=== PATIENT | male | born 1935 | race Caucasian/White ===

== ENCOUNTER 2017-05-17 12:27 | Observation (INO) | payer MEDICARE, OTHER ==
[~2017-05-17 12:27] MED LIST: CYCL10TA PO; METF500T PO; PROS5TAB PO
[2017-05-17 15:24] VITALS: BP 157/78; PULSE 86; RESP 18; TEMP 98.2; O2SAT 94
[2017-05-17] MEDS ORDERED: ONDANSETRON HCL 4 MG/2 ML VIAL IV PUSH PRN (15:30)
[2017-05-17] MEDS ORDERED: DEXTROSE 50% IN WATER 50 ML VIAL(D50) IV PUSH PRN (15:30)
[2017-05-17] MEDS ORDERED: GLUCAGON 1 MG/ML VIAL OTHER PRN (15:30)
--- NOTE | 2017-05-17 15:56 | HHI.HP ---
[facility] Admission Diagnosis abdominal pain Diagnoses: (1) Abdominal pain Diagnosis: Principal Chief Complaint: abdominal pain Travel History International Travel<30 Days: Yes Contact w/Intl Traveler <30 Da: Yes Name of Country Traveled to: [place] Traveled to Known Affected Are: No History of Present Illness patient is a 81 y/o male with history of diabetes who presented to ER with abdominal pain. pain started few days ago when he was on a cruise.pain was epigastric which later shifted to the RUQ. pain was associated with some nausea and vomiting but with no fever or chills. he had some soft BM's but with no diarrhea. he received some IV fluid and antiemetics on the cruise. pain gradually got worse which made him to come back to ER. there was no other sick passenger on the cruise per the family. Review of Systems Constitutional: DENIES: Fever, Weight loss, Chills, Night Sweats Eyes: DENIES: Blurred vision, Diplopia, Vision loss, Double Vision Ears, nose, mouth, throat: DENIES: Tinnitus, Vertigo, Throat pain, Epistaxis Respiratory: DENIES: Apneas, Cough, Snoring, Wheezing, Hemoptysis, Sputum production, Shortness of breath Cardiovascular: DENIES: Chest pain, Palpitations, Syncope, Dyspnea on Exertion , PND, Lower Extremity Edema, Orthopnea, Claudication Gastrointestinal: COMPLAINS OF: Abdominal pain, Nausea, Vomiting, DENIES: Black stools, Bloody stools, Constipation, Diarrhea, Difficulty Swallowing, Anorexia Genitourinary: DENIES: Urinary frequency, Urgency, Hematuria, Dysuria Musculoskeletal: DENIES: Joint pain, Muscle aches, Stiffness, Joint Swelling Integumentary: DENIES: Rash Neurologic: DENIES: Abnormal gait, Headache, Localized weakness, Paresthesias, Seizures, Speech Problems, Tremor, Poor Balance Psychiatric: DENIES: Anxiety, Confusion, Mood changes, Depression, Hallucinations, Agitation, Suicidal Ideation, Homicidal Ideation, Delusions Past Family Social History Past Medical History diabetes mellitus Reported Medications finasteride/ metformin/ Flexeril Allergies: Coded Allergies: No Known Allergies (Unverified , 05/17/17) Active Ordered Medications Inpatient Medications Dextrose (D50w (Vial) Inj) 50 ml UNSCH PRN IV PUSH HYPOGLYCEMIA-SEE COMMENTS; Start 05/17/17 at 15:30 Glucagon (Glucagon Inj) 1 mg UNSCH PRN OTHER HYPOGLYCEMIA-SEE COMMENTS; Start 05/17/17 at 15:30 Insulin Aspart (NovoLOG SUPPLEMENTAL SCALE) 1 ACHS SLIDING SCALE SQ ; Start 05/17/17 at 17:00 Ondansetron HCl (Zofran Inj) 4 mg Q8HR PRN IV PUSH NAUSEA; Start 05/17/17 at 15: 30 Sodium Chloride 1,000 ml @ 75 mls/hr [id number] IV ; Start 05/17/17 at 15:30 Social History quit smoking years ago- doesn't drink. Physical Exam Vital Signs Vital Signs Date Time Temp Pulse Resp B/P (MAP) Pulse Ox O2 Delivery O2 Flow Rate FiO2 05/17/17 15:24 98.2 86 18 157/78 (104) 94 Physical Exam GENERAL: This is a well-nourished, well-developed patient, in no apparent distress. SKIN: No rashes, ecchymoses or lesions. Cool and dry. HEAD: Atraumatic. Normocephalic. No temporal or scalp tenderness. EYES: Pupils equal round and reactive. Extraocular motions intact. No scleral icterus. No injection or drainage. ENT: Nose without bleeding, purulent drainage or septal hematoma. Throat without erythema, tonsillar hypertrophy or exudate. Uvula midline. Airway patent. NECK: Trachea midline. No JVD or lymphadenopathy. Supple, nontender, no meningeal signs. CARDIOVASCULAR: Regular rate and rhythm without murmurs, gallops, or rubs. RESPIRATORY: Clear to auscultation. Breath sounds equal bilaterally. No wheezes , rales, or rhonchi. GASTROINTESTINAL: Abdomen soft, RUQ tenderness, nondistended. No hepato- splenomegaly, or palpable masses. No guarding. MUSCULOSKELETAL: Extremities without clubbing, cyanosis, or edema. No joint tenderness, effusion, or edema noted. No calf tenderness. Negative Homans sign bilaterally. NEUROLOGICAL: Awake and alert. Cranial nerves II through XII intact. Motor and sensory grossly within normal limits. Five out of 5 muscle strength in all muscle groups. Normal speech. Caprini VTE Risk Assessment Caprini VTE Risk Assessment: Mod/High Risk (score >= 2) Caprini Risk Assessment Model Point Value = 1 Point Value = 2 Point Value = 3 Point Value = 5 Age 41-60 Minor surgery BMI > 25 kg/m2 Swollen legs Varicose veins or History of unexplained or recurrent spontaneous Oral contraceptives or hormone replacement Sepsis (< 1 month) Serious lung disease, including pneumonia (< 1 month) Abnormal pulmonary function Acute myocardial infarction Congestive heart failure (< 1 month) History of inflammatory bowel disease Medical patient at bed rest Age 61-74 Arthroscopic surgery Major open surgery (> 45 min) Laparoscopic surgery (> 45 min) Malignancy Confined to bed (> 72 hours) Immobilizing plaster cast Central venous access Age >= 75 History of VTE Family history of VTE Factor V Leiden Prothrombin [id number] Lupus anticoagulant Anticardiolipin antibodies Elevated serum homocysteine Heparin-induced thrombocytopenia Other congenital or acquired thrombophilia Stroke (< 1 month) Elective arthroplasty Hip, pelvis, or leg fracture Acute spinal cord injury (< 1 month) Prophylaxis Regimen Total Risk Factor Score Risk Level Prophylaxis Regimen 0-1 Low Early ambulation 2 Moderate Order ONE of the following: *Sequential Compression Device (SCD) *Heparin 5000 units SQ BID 3-4 Higher Order ONE of the following medications: *Heparin 5000 units SQ TID *Enoxaparin/Lovenox 40 mg SQ daily (WT < 150 kg, CrCl > 30 mL/min) *Enoxaparin/Lovenox 30 mg SQ daily (WT < 150 kg, CrCl > 10-29 mL/min) *Enoxaparin/Lovenox 30 mg SQ BID (WT < 150 kg, CrCl > 30 mL/min) AND/OR *Sequential Compression Device (SCD) 5 or more Highest Order ONE of the following medications: *Heparin 5000 units SQ TID (Preferred with Epidurals) *Enoxaparin/Lovenox 40 mg SQ daily (WT < 150 kg, CrCl > 30 mL/min) *Enoxaparin/Lovenox 30 mg SQ daily (WT < 150 kg, CrCl > 10-29 mL/min) *Enoxaparin/Lovenox 30 mg SQ BID (WT < 150 kg, CrCl > 30 mL/min) AND *Sequential Compression Device (SCD) Assessment and Plan Assessment and Plan A/P - RUQ pain keep NPO- start on IV fluid- pain control and antiemetics as needed- check LFT 's and RUQ sonogram. -diabetes mellitus; hold metformin- accu-check with SSI -mild rhabdomyolysis- start IV fluid- check CPK in am. -DVT prophylaxis with SCD's. Discussed Condition With the ER physician, the patient and the family. RN. Problem Qualifiers (1) Abdominal pain: Qualified Codes: R10.11 - Right upper quadrant pain Eden Salazar MD May 17, 2017 15:56
[2017-05-17] MEDS ORDERED: MORPHINE SULFATE 2 MG/ML INJ IV PUSH PRN (16:00)
[2017-05-17] MEDS: SODIUM CHLOR 0.9% 1000 ML INJ 1,000 ML IV SCH (16:03)
[2017-05-17] MEDS: INSULIN ASPART SUPPLEMENTAL SCALE SQ SCH ×2 (17:00→21:00)
[2017-05-17 17:34] LABS: ALBUMIN 3.1 GM/DL (3.4-5.0); DIRECT BILIRUBIN ADULT 0.1 MG/DL (0.0-0.2)
[2017-05-17 17:36] LABS: INDIRECT BILIRUBIN 0.5 MG/DL (0.0-0.8); TOTAL BILIRUBIN ADULT 0.6 MG/DL (0.2-1.0)
[2017-05-17 17:37] LABS: TOTAL PROTEIN 7.9 GM/DL (6.4-8.2)
--- NOTE | 2017-05-17 17:46 | RADRPT ---
EXAM DATE/TIME: 05/17/2017 17:13 [facility] COMPARISON: CT ABDOMEN & PELVIS W CONTRAST, May 17, 2017, 10:16. INDICATIONS : Right upper quadrant pain. MEDICAL HISTORY : Hypertension. Diabetes. Abdominal pain. Brain tumor. SURGICAL HISTORY : Brain tumor removal. ENCOUNTER: Initial ACUITY: 4-6 days PAIN SCORE: 10/10 LOCATION: Right upper quadrant MEASUREMENTS: LIVER: 15.4 cm length COMMON DUCT: 9 mm RIGHT KIDNEY: 9.6 x 4.4 x 5.5 cm FINDINGS: The gallbladder is intact without any evidence for gallstones, gallbladder wall thickening, or perich olecystic fluid. The visualized head of the pancreas, and right kidney appear grossly intact for earnest hnique. 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 CONCLUSION: Unremarkable study and the large right adrenal mass is difficult to visualize. Penelope Sylvester MD on May 17, 2017 at 17:42 Board Certified Radiologist. This report was verified electronically.
[2017-05-17] MEDS: MORPHINE SULFATE 2 MG/ML INJ IV PUSH PRN ×2 (18:53→21:20)
[2017-05-17 23:35] VITALS: BP 148/66; PULSE 97; RESP 18; TEMP 98.2; O2SAT 95
[2017-05-18 03:22] VITALS: BP 145/65; PULSE 87; RESP 17; TEMP 98.2; O2SAT 96
[2017-05-18] MEDS: SODIUM CHLOR 0.9% 1000 ML INJ 1,000 ML IV SCH (04:35)
[2017-05-18 05:31] LABS: BICARBONATE 27.6 MEQ/L (21.0-32.0); CALCIUM 8.6 MG/DL (8.5-10.1); CREATININE 1.03 MG/DL (0.60-1.30)
[2017-05-18] MEDS: MORPHINE SULFATE 2 MG/ML INJ IV PUSH PRN (06:20)
[2017-05-18 07:53] VITALS: BP 136/73; PULSE 89; RESP 18; TEMP 98.7; O2SAT 93
[2017-05-18] MEDS: INSULIN ASPART SUPPLEMENTAL SCALE SQ SCH ×2 (08:00→12:00)
[2017-05-18] MEDS ORDERED: PANTOPRAZOLE SODIUM 40 MG VIAL IV PUSH SCH (09:00)
[2017-05-18 11:34] VITALS: BP 131/63; PULSE 89; RESP 20; TEMP 97.7; O2SAT 93
--- NOTE | 2017-05-18 13:05 | RADRPT ---
EXAM DATE/TIME: 05/18/2017 11:41 [facility] COMPARISON: US ABDOMEN - GALLBLADDER, May 17, 2017, 17:13. INDICATIONS : Abdominal pain, nausea and vomiting. DOSE: 4.2 mCi Tc99m Mebrofenin IV MEDICAL HISTORY : Diabetes mellitus type 2. Brain cancer. SURGICAL HISTORY : Brain tumor removed. ENCOUNTER: Initial ACUITY: 2 days PAIN SCALE: 3/10 LOCATION: Right upper quadrant TECHNIQUE: Following the intravenous administration of radiotracer, dynamic sequential images were performed wit h continuous acquisition. FINDINGS: HEPATIC KINETICS: There is prompt uptake of radiotracer in the liver. No focal defects are seen. There is normal rate of washout from the hepatic parenchyma. BILIARY CLEARANCE: Activity is first seen in the extrahepatic biliary system at 10 minutes. There is normal excretion i nto the small bowel. GALLBLADDER: Activity is not seen in the gallbladder. Common bile duct kinetics are normal and there is no eviden ce of biliary obstruction. BILIARY ENTRIC REFLUX: Some observed. CONCLUSION: No gallbladder uptake. Acute acalculous cholecystitis cannot be ruled out. Delayed imaging will be ob tained. Prince Ramos MD on May 18, 2017 at 13:01 Board Certified Radiologist. This report was verified electronically.
--- NOTE | 2017-05-18 15:47 | PD.AMA ---
Against Medical Advice Note Discharge Disposition: Against Medical Advice Pt Condition on Discharge: Stable Recommended Treatment Course Patient refused HIDA scan during the procedure. He was very anxious to go home. He did not want to wait for the provider to see him again and left AMA despite recommendations. AMA Statement Patient Umer Bess has decided to leave the hospital against medical advice. This patient has the capacity to refuse care and understands the risks of leaving, including permanent disability and/or , and has had an opportunity to ask questions about his condition. The patient has been informed that he may return for care at any time, and follow up has been arranged/ advised. Andree Bañuelos MD May 18, 2017 15:47
[2017-05-19 15:07] LABS: HEPATITIS A AB IGM NEGATIVE (NEGATIVE); HEPATITIS B CORE AB IGM NEGATIVE (NEGATIVE); HEPATITIS B SURFACE ANTIGEN NEGATIVE (NEGATIVE); HEPATITIS C AB IgG NEGATIVE (NEGATIVE)
== END 2017-05-18 13:38 | disposition left against medical advice (07) ==
LOC: NEDDLT 12:27 → NEPGCP 15:20
PROVIDERS: ADMIT Family Medicine; ATTEND Family Medicine
DX: R10.11 Right upper quadrant pain (principal); E11.9 Type 2 diabetes mellitus without complications; M62.82 Rhabdomyolysis; R11.2 Nausea with vomiting, unspecified; E27.9 Disorder of adrenal gland, unspecified; D17.79 Benign lipomatous neoplasm of other sites; Z79.4 Long term (current) use of insulin; Z87.891 Personal history of nicotine dependence
CPT/HCPCS: 76705; 78226; 80048; 80074; 80076; 80307; 82550; 82948; 96361; 96374; 96375; 96376; A9537; C9113; G0378; J2270; J7030; 71045; 71275; 74177; 81001; 82552; 83690; 83735; 84484; 85025; 85379; 85610; 85730; 93005; J1170; J2405; Q9967